=== PATIENT | female | born 2005 | race African-American/Black ===

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

== ENCOUNTER 2023-01-03 10:33 | Emergency (ER) | payer OTHER ==
[2023-01-03 10:55] VITALS: RESP 18; TEMP 98.5
[2023-01-03] MEDS ORDERED: DEXAMETHASONE SOD PHOSPHATE 10 MG/ML 1 ML VIAL IM STA (11:21)
--- NOTE | 2023-01-03 11:24 | ED ---
URI HPI - General Chief Complaint: Upper Respiratory Infection Stated Complaint: abd pain, throat pain Time Seen by Provider: 01/03/23 11:00 Source: patient, RN notes reviewed, old records reviewed Mode of arrival: ambulatory Limitations: no limitations - History of Present Illness Initial Comments: Well-appearing 17-year-old female presents ambulatory to the emergency room with complaints of cough and sore throat for one week. States it is worse in the morning gets better throughout the day. Denies any fevers. States that her mom is also sick. No nausea vomiting or diarrhea. She did try Motrin with no relief. Denies any medical history. MD Complaint: cough, sore throat -: week(s) (1) Severity scale (1-10): 8 Consistency: constant Improves With: nothing Context: sick contacts (mom sick) Associated Symptoms: sore throat, cough Treatments Prior to Arrival: Ibuprofen - Related Data Allergies Allergy/AdvReac Type Severity Reaction Status Date / Time No Known Allergies Allergy Verified 01/03/23 10:55 Review of Systems ROS Statement: Those systems with pertinent positive or pertinent negative responses have been documented in the HPI. ROS Other: All systems not noted in ROS Statement are negative. Past Medical History Past Medical History: No Reported History History of Any Multi-Drug Resistant Organisms: None Reported Past Surgical History: No Surgical Hx Reported Past Psychological History: No Psychological Hx Reported Smoking Status: Never smoker Past Alcohol Use History: None Reported Past Drug Use History: None Reported General Exam Limitations: no limitations General appearance: alert, in no apparent distress Head exam: Present: atraumatic, normocephalic Eye exam: Absent: scleral icterus, conjunctival injection, periorbital swelling ENT exam: Present: normal oropharynx, mucous membranes moist Expanded Mouth exam: Present: tongue normal, tongue elevation. Absent: drooling, trismus Throat exam: negative: tonsillomegaly, tonsillar exudate, R peritonsillar mass, L peritonsillar mass Neck exam: Present: full ROM. Absent: tenderness, meningismus, lymphadenopathy, thyromegaly Respiratory exam: Present: normal lung sounds bilaterally. Absent: respiratory distress, accessory muscle use Cardiovascular Exam: Present: regular rate GI/Abdominal exam: Present: soft. Absent: tenderness, rigid Extremities exam: Present: normal capillary refill Neurological exam: Present: alert, oriented X3 Psychiatric exam: Present: normal affect, normal mood Skin exam: Present: warm, dry, normal color. Absent: cyanosis, diaphoretic, petechiae, pallor Course Vital Signs 01/03/23 01/03/23 10:54 13:00 Temperature 98.5 F 98.5 F Pulse Rate 83 82 Respiratory 18 18 Rate Blood Pressure 127/82 111/69 O2 Sat by Pulse 99 99 Oximetry Medical Decision Making - Medical Decision Making Influenza, coronavirus, RSV and strep swabs negative. She has no lymphadenopathy. No abdominal pain. Vital signs are stable. Lungs sounds are clear. Oxygen saturation 99% no respiratory distress Chest x-ray interpreted by me shows no evidence of consolidation, trachea is midline, no evidence of free air. Radiologist interpretation suboptimal evaluation of lateral right upper lung to midlung otherwise no suspicious acute infiltrate is seen. She was given Decadron for inflammation. Patient states her symptoms are worse in the morning with sore throat gets better throughout the day. This is likely pharyngitis versus a viral illness as she states her mother was also sick last week. She was directed to increase her fluid intake. Tylenol and or Motrin for any discomfort. Add humidified air to her room. Follow-up with her primary care doctor next week. Return with any new or concerning symptoms including difficulty swallowing, fevers or persistent nausea and vomiting. She is agreeable to this plan of care. Case discussed with Dr. Tolbert Was pt. sent in by a medical professional or institution? @ -no Did you speak to anyone other than the patient for history? @ -no Did you review nursing and triage notes? @ -yes i agree Were old charts reviewed? @ -no Differential Diagnosis? @ -Peritonsillar abscess, which apparently oh abscess, strep pharyngitis, viral illness, epiglottitis X-rays interpreted by me (1pt min.)? @ -Yes as above CT interpreted by me (1pt min.)? @ -[none] U/S interpreted by me (1pt. min.)? @ -[none] What testing was considered but not performed? (CT, X-rays, U/S, labs)? Why? @ none What meds were considered but not given? Why? @ -none Did you discuss the management of the patient with other professionals? @ -no Did you reconcile home meds? @ -no Was smoking cessation discussed for >3mins.? @ -no Was critical care preformed (if so, how long)? @ -no Were there social determinants of health that impacted care today? How? (Smith elessness, low income, unemployed, alcoholism, drug addiction, transportation, low edu. Level, literacy, decrease access to med. care, assisted, rehab)? @ -none Was there de-escalation of care discussed even if they declined? (Discuss DNR or withdrawal of care, Hospice)? @ -no What co-morbidities impacted this encounter? (DM, HTN, Smoking, COPD, CAD, Cancer, CVA, Hep., AIDS, mental health diagnosis, sleep apnea, morbid obesity)? @ -none Was patient admitted / discharged? @ -discharged Undiagnosed new problem with uncertain prognosis? @ -[none] Drug Therapy requiring intensive monitoring for toxicity (Heparin, Nitro, Insulin, Cardizem)? @ -no Were any procedures done? @ -no Diagnosis/symptom? @ -Viral pharyngitis Acute, or Chronic, or Acute on Chronic? @ -acute Uncomplicated (without systemic symptoms) or Complicated (systemic symptoms)? @ -Uncomplicated Side effects of treatment? @ -[none] Exacerbation, Progression, or Severe Exacerbation] @ -[no] Poses a threat to life or bodily function? @ no - Lab Data Lab Results 01/03/23 01/03/23 Range/Units 11:39 11:39 Influenza Type A (PCR) Not Detected (Not Detectd) Influenza Type B (PCR) Not Detected (Not Detectd) RSV (PCR) Not Detected (Not Detectd) SARS-CoV-2 (PCR) Not Detected (Not Detectd) Group A Strep (PCR) NOT DETECTED (Not Detectd) Disposition Clinical Impression: Acute upper respiratory infection, Pharyngitis Disposition: HOME SELF-CARE Condition: Good Instructions (If sedation given, give patient instructions): Upper Respiratory Infection (ED) Additional Instructions: Increase your fluid intake and have humidified air to your room at night. Tylenol and/or Motrin as needed for any pain or discomfort. Follow-up with your primary care doctor next week. Is patient prescribed a controlled substance at d/c from ED?: No Referrals: None,Stated [Primary Care Provider] - 1-2 days Time of Disposition: 12:50
--- NOTE | 2023-01-03 12:31 | XR ---
EXAMINATION TYPE: XR chest 2V DATE OF EXAM: 01/03/2023 COMPARISON: Prior chest x-ray May 19, 2006 HISTORY: Cough for one week. TECHNIQUE: Frontal and lateral views of the chest are obtained. FINDINGS: There is opacity from overlying artifact possible clothing material in the right supraclavi cular region extending to the lateral aspect of the right upper lung. Remainder of the lungs are haritha r without pleural effusion or pneumothorax seen. The cardiac silhouette size is within normal limits . The osseous structures are intact. IMPRESSION: Suboptimal evaluation lateral right upper to midlung. Otherwise no suspicious acute infi ltrate is seen.
[2023-01-03 13:01] VITALS: BP 111/69; PULSE 82
== END 2023-01-03 13:01 | disposition home or self-care (01) ==
LOC: EC 10:33
DX: J02.9 Acute pharyngitis, unspecified (principal); Z20.822 Contact with and (suspected) exposure to COVID-19
CPT/HCPCS: 87651; 87636; 71046; 99284; 96372; J1100

== ENCOUNTER 2024-06-15 17:00 | Inpatient (IN) | payer OTHER ==
[2024-06-15] MEDS: LACTATED RINGERS 1,000 ML IV SCH (19:00)
--- NOTE | 2024-06-15 19:14 | P.HPOB ---
History of Present Illness H&P Date: 06/15/24 Chief Complaint: elective induction of labor Ms. Berry is a 18 year old at 38 weeks and 6 days with EDC of 06/23/24 by LMP consistent with 22 week US who presents for elective induction of labor with cervical ripening this evening. The has been essentially unc omplicated. The fetus is estimated in the 28%ile by a 32 week US. work-up: blood type B positive, antibody screen negative, rubella immune, VDRL non-reactive, HBsAg negative, HIV negative, HCV Ab non-reactive, gonorrhea negative, chlamydia negative, 1 hour GTT wnl, GBS negative. Past Medical History Past Medical History: No Reported History History of Any Multi-Drug Resistant Organisms: None Reported Past Surgical History: No Surgical Hx Reported Past Psychological History: No Psychological Hx Reported Smoking Status: Never smoker Past Alcohol Use History: None Reported Past Drug Use History: None Reported Medications and Allergies Allergies Allergy/AdvReac Type Severity Reaction Status Date / Time No Known Allergies Allergy Verified 01/03/23 10:55 Exam Focused physical exam is performed. This is a healthy-appearing in no apparent distress. Breathing is non-labored. Abdomen is gravid and non-tender. Cervical exam is closed/long/high. Sterile speculum is used to insert a cooks catheter with 60cc in each balloon. Extremities non-tender and non-edematous. heart tones are reactive and reassuring on NST. Assessment and Plan Assessment: 18 year old at 38 weeks and 6 days presenting for overnight cervical ripening and induction of labor tomorrow Plan: Admit, clear liquid diet, cooks catheter x12 hour with low-dose pitocin, AROM in AM. Continuous EFM and tocometer. Anticipate vaginal delivery.
[2024-06-15] MEDS ORDERED: CARBOPROST TROMETHAMINE 250 MCG/ML 1 ML AMP IM PRN (19:15)
[2024-06-15] MEDS ORDERED: TERBUTALINE 1 MG/ML VIAL SQ PRN (19:15)
[2024-06-15] MEDS ORDERED: miSOPROStoL 200 MCG TAB RECTAL PRN (19:15)
[2024-06-15] MEDS ORDERED: METHYLERGONOVINE 0.2 MG/ML 1 ML AMP IM PRN (19:15)
[2024-06-15] MEDS ORDERED: OXYTOCIN 10 UNIT/ML 1 ML VIAL IM PRN (19:15)
[2024-06-15] MEDS ORDERED: miSOPROStoL 200 MCG TAB PO PRN (19:15)
[2024-06-15] MEDS ORDERED: OXYTOCIN 30 UNITS/500 ML NS 30 UNIT in SALINE 1 500ML.BAG IV SCH ×2 (19:15→22:52)
[2024-06-15] MEDS ORDERED: TRANEXAMIC 1,000 MG/100ML-NACL 1,000 MG in EMPTY BAG 1 BAG IV PRN (19:15)
[2024-06-15 19:34] LABS: Basophils % (A) 0 %; Eosinophils % (A) 1 %; HGB 9.1 gm/dL (11.4-16.0); Hypochromasia Slight; Lymphocytes # (A) 0.9 k/uL (1.0-4.8); Lymphocytes % (A) 14 %; MCHC 31.3 g/dL (31.0-37.0); MCV 89.3 fL (80.0-100.0); Mean Platelet Volume 9.1; Monocytes # (A) 0.4 k/uL (0-1.0); Monocytes % (A) 7 %; Neutrophils # (A) 4.9 k/uL (1.3-7.7); Neutrophils % (A) 76 %; Platelet Count 254 k/uL (150-450); RBC 3.24 m/uL (3.80-5.40); RDW 14.7 % (11.5-15.5); WBC 6.5 k/uL (4.0-11.0)
[2024-06-15] MEDS: OXYTOCIN 30 UNITS/500 ML NS 30 UNIT in SALINE 1 500ML.BAG IV SCH (22:51)
[2024-06-16] MEDS: NALBUPHINE 10 MG/ML (10 ML MDV) IV PRN (00:33)
[2024-06-16] MEDS ORDERED: ROPIVACAINE 5 MG/ML 30 ML VIAL ONE (09:55)
[2024-06-16] MEDS ORDERED: fentaNYL (PF) 50 MCG/ML 5 ML AMP ONE (09:55)
[2024-06-16] MEDS ORDERED: SODIUM CHLORIDE 0.9% 250 ML BAG ONE (09:55)
[2024-06-16] MEDS ORDERED: diphenhydrAMINE 50 MG/ML 1 ML VIAL IVP PRN ×2 (18:44)
[2024-06-16] MEDS ORDERED: BENZOCAINE/MENTHOL SPRAY 1 GM/SPRAY AEROSOL TOPICAL PRN (18:44)
[2024-06-16] MEDS ORDERED: ZOLPIDEM 5 MG TAB PO PRN (18:44)
[2024-06-16] MEDS ORDERED: HYDROCORTISONE 2.5% RECTAL CREAM 30 GM TUBE RECTAL PRN (18:44)
[2024-06-16] MEDS ORDERED: LANOLIN CREAM 1 GM TUBE TOPICAL PRN (18:44)
[2024-06-16] MEDS ORDERED: SIMETHICONE 80 MG CHEWABLE PO PRN (18:44)
[2024-06-16] MEDS ORDERED: diphenhydrAMINE 50 MG CAP PO PRN (18:44)
[2024-06-16] MEDS ORDERED: diphenhydrAMINE 25 MG CAP PO PRN (18:44)
--- NOTE | 2024-06-16 18:44 | P.PROBDLV ---
Vaginal Delivery Note - . Vaginal Delivery Note: DATE OF SERVICE: 06/16/2024 PROCEDURE: Normal Vaginal Delivery ATTENDING: Dr. Taina Garcia MD ESTIMATED BLOOD LOSS: 200 mL FINDINGS: VFI, Apgars 8/9. Weight 6 pounds and 8 ounces (2970 grams) PROCEDURE: Ms. Berry is a 18 year old at 39 weeks presenting to labor and delivery for elective induction of labor. Cooks catheter was placed with low- dose oxytocin overnight on 06/15. The cooks catheter was removed and AROM was undertaken at 0809 this morning. Pitocin was titrated per protocol. The patient received epidural anesthesia per her request. The patient was completely dilated at 1800. She pushed effectively with Category I heart tones. A viable female infant was delivered at 182. The infant was placed on the maternal abdomen and bulb suctioned. The was noted to be spontaneously crying. Cord was clamped and cut after a 60-second delay. The was handed off to the pediatric team. Placenta was delivered whole with gentle cord traction at 1825. Oxytocin was started to facilitate uterine tone. Uterine fundus was found to be firm and below the umbilicus upon fundal massage. Thorough examination of the cervix, vagina, periurethral area, and perineum revealed a small sulcal laceration that was infiltrated with lidocaine and repaired with 2-0 Vicryl in a figure of eight stitch. The patient is stable and allowed to begin the bonding process.
[2024-06-16] MEDS: LIDOCAINE 0.5% (PF) 5 MG/ML (50 ML SDV) SQ PRN (18:49)
[2024-06-16] MEDS: IBUPROFEN 600 MG TAB PO SCH (19:08)
[2024-06-16] MEDS: SENNOSIDES-DOCUSATE SODIUM 1 EACH TAB PO SCH (21:07)
[2024-06-17] MEDS: ACETAMINOPHEN TAB 325 MG TAB PO PRN (00:08)
[2024-06-17 03:46] VITALS: RESP 16
[2024-06-17 06:41] LABS: Basophils % (A) 0 %; Eosinophils # (A) 0.1 k/uL (0-0.7); Eosinophils % (A) 1 %; HCT 27.9 % (34.0-46.0); HGB 8.7 gm/dL (11.4-16.0); Hypochromasia Slight; Lymphocytes % (A) 10 %; MCH 27.3 pg (25.0-35.0); MCHC 31.1 g/dL (31.0-37.0); MCV 87.8 fL (80.0-100.0); Mean Platelet Volume 9.9; Monocytes # (A) 0.6 k/uL (0-1.0); Monocytes % (A) 6 %; Neutrophils # (A) 8.5 k/uL (1.3-7.7); Neutrophils % (A) 81 %; Platelet Count 204 k/uL (150-450); RBC 3.18 m/uL (3.80-5.40); WBC 10.5 k/uL (4.0-11.0)
--- NOTE | 2024-06-17 10:52 | P.PNOBGVD ---
Subjective - Subjective Principal diagnosis: s/p normal vaginal delivery Interval history: The patient is doing well this morning and had no acute events overnight. She has no complaints this morning. She reports minimal lochia, passing flatus, voiding without difficulty, ambulating, and eating/drinking without nausea or vomiting. She is her without difficulty. She denies chest pain, shortness of breathing, fevers, or chills overnight. She denies pain or swelling in the legs. Patient reports: Reports appetite normal, Reports voiding normally, Reports pain well controlled, Reports ambulating normally [place]: doing well, nursing well Objective - Latest Vital Signs Latest vital signs: Vital Signs Temp Pulse Resp BP Pulse Ox 06/17/24 08:00 98.4 F 74 16 99/50 98 06/17/24 03:46 98.2 F 86 16 108/64 06/17/24 00:00 98.2 F 86 16 113/66 06/16/24 20:34 86 17 146/65 06/16/24 20:19 88 17 131/60 06/16/24 20:04 74 17 114/82 06/16/24 19:49 74 17 140/74 06/16/24 19:34 84 17 122/63 06/16/24 19:19 83 17 137/69 06/16/24 19:04 86 18 151/73 06/16/24 18:49 91 17 137/80 06/16/24 18:34 98.0 F 96 17 140/78 Intake and Output 06/16/24 06/17/24 06/17/24 22:59 06:59 14:59 Intake Total 1539.133 Output Total 355 Balance 1184.133 Intake: IV 1500 Intake, IV Titration 39.133 Amount Oxytocin 30 Units/500 ml 39.133 Ns 30 unit In Saline 1 500ml.bag @ Per Protocol IV .Q0M [facility] Rx#:[id number] Output: Output, Quantitative 355 Blood Loss Other: # Voids 1 1 - Exam Extremities: Present: normal Abdomen: Present: normal appearance, soft Uterus: Present: normal, firm - Labs Labs: Abnormal Lab Results - Last 24 Hours (Table) 06/17/24 Range/Units 06:16 RBC 3.18 L (3.80-5.40) m/uL Hgb 8.7 L (11.4-16.0) gm/dL Hct 27.9 L (34.0-46.0) % Neutrophils # 8.5 H (1.3-7.7) k/uL Assessment and Plan Assessment: Ms. Berry is a 18 year old now PPD#1 s/p normal vaginal delivery after elective induction of labor Plan: 1. . Patient meeting all milestones appropriately. 2. Viable female . At bedside, doing well, nursing well. Dispo: Patient requests another night's stay. Anticipate discharge home tomorrow.
[2024-06-17] MEDS: FERROUS SULFATE 325 MG TAB PO SCH (12:30)
[2024-06-18 08:00] VITALS: BP 114/64; PULSE 84; TEMP 98.1
--- NOTE | 2024-06-18 08:50 | P.DS ---
Providers Date of admission: 06/15/24 18:25 Expected date of discharge: 06/18/24 Attending physician: Taina Garcia MD Primary care physician: Stated None Hospital Course: Ms. Berry is a 18 year old now PPD#2 s/p normal vaginal delivery after elective induction of labor. She is doing well this morning and desires discharge home today. She is eating, drinking, ambulating, and voiding without difficulty. Lochia is moderate. She denies fevers, chills, chest pain, shortness of breath, pain/swelling in legs. She is her baby girl without difficulty. She requests Motrin and Tylenol prescriptions for home. restrictions are reviewed with the patient including pelvic rest for 6 weeks. She is encouraged to call the office for heavy bleeding, fevers, chills, foul- smelling discharge, mastitis concerns, or any other concerns. She will follow up in the office in 6 weeks. Assessment: 18 year old PPD#2 s/p normal vaginal delivery Patient Condition at Discharge: Good Plan - Discharge Summary Discharge Rx Participant: No New Discharge Prescriptions: New Acetaminophen Tab [Tylenol] 650 mg PO Q6H PRN #30 tab PRN Reason: Mild Pain (Scale 1 To 3) Ibuprofen [Motrin] 600 mg PO Q6HR PRN #30 tab PRN Reason: Mild Pain (Scale 1 To 3) No Action Vit No.179/Iron/Folic [ Tablet] 1 tablet PO DAILY Discharge Medication List Vit No.179/Iron/Folic [ Tablet] 1 tablet PO DAILY 06/15/24 [History] Acetaminophen Tab [Tylenol] 650 mg PO Q6H PRN #30 tab 06/18/24 [Rx] Ibuprofen [Motrin] 600 mg PO Q6HR PRN #30 tab 06/18/24 [Rx] Follow up Appointment(s)/Referral(s): Taina Garcia MD [STAFF PHYSICIAN] - 08/03/24 3:15 pm Discharge Disposition: HOME SELF-CARE
== END 2024-06-18 13:00 | disposition home or self-care (01) | DRG 560 ==
LOC: 4FBP 18:25
PROVIDERS: ADMIT Obstetrics & Gynecology; ATTEND Obstetrics & Gynecology
PROC: 0U7C7ZZ Dilation of Cervix, Via Natural or Artificial Opening (ICD-10-PCS; 2024-06-15)
PROC: 10907ZC Drainage of Amniotic Fluid, Therapeutic from Products of Conception, Via Natural or Artificial Opening (ICD-10-PCS; 2024-06-15)
PROC: 3E033VJ Introduction of Other Hormone into Peripheral Vein, Percutaneous Approach (ICD-10-PCS; 2024-06-15)
PROC: 10E0XZZ Delivery of Products of Conception, External Approach (ICD-10-PCS; principal; 2024-06-16)
DX: O71.82 Other specified trauma to perineum and vulva (principal); Z37.0 Single live birth; Z3A.38 38 weeks gestation of pregnancy; Z28.310 Unvaccinated for COVID-19; Z79.899 Other long term (current) drug therapy
CPT/HCPCS: 85025; 86850; 86900; 86901